=== PATIENT | female | born 1960 | race Caucasian/White ===

== ENCOUNTER 2019-04-11 06:20 | Emergency (ER) | payer OTHER ==
[~2019-04-11] VITALS: Ht 154.9 cm; Wt 90.7 kg
[~2019-04-11 06:20] MED LIST: FISH OIL + VIT1 EACH PO; HYDROCODON-ACE1 EACH PO; HYDROCODONE-APA1 TA1 PO; MULTI VITAMIN1 EACH PO; PRILOSEC40 MG PO; SIMVASTATIN5 MG PO
[2019-04-11] MEDS ORDERED: ADVIL200 M3 PO (06:29)
[2019-04-11 07:08] LABS: INFLUENZA A ANTIGEN Negative (Negative); INFLUENZA B ANTIGEN Negative (Negative)
[2019-04-11] MEDS ORDERED: TESSALON PERLE100 M1 PO (07:28)
[2019-04-11] MEDS ORDERED: VENTOLIN HFA 1818 GM INH (07:28)
[2019-04-11 07:41] VITALS: BP 143/67
== END 2019-04-11 07:42 | disposition home or self-care (01) ==
LOC: M.ERS 06:20
PROVIDERS: Emergency Medicine
DX: J06.9 Acute upper respiratory infection, unspecified (principal); I10 Essential (primary) hypertension; E78.00 Pure hypercholesterolemia, unspecified; F17.210 Nicotine dependence, cigarettes, uncomplicated; Z96.641 Presence of right artificial hip joint